=== PATIENT | female | born 2000 | race Two or more races ===

== ENCOUNTER 2024-12-31 12:16 | Emergency (ER) | payer MEDICAID ==
[~2024-12-31] VITALS: Ht 147.3 cm; Wt 51.5 kg
[2024-12-31 12:22] VITALS: BP 109/79; PULSE 84; RESP 15; O2SAT 97
[2024-12-31] MEDS: LIDOcaine 1% 30ml preserv. free vial SQ STA (13:47)
--- NOTE | 2024-12-31 14:30 | Physician Documentation ---
History of Present Illness ~ Chief Complaint: Laceration Stated Complaint: LIP LAC/BROKEN TOOTH Time Seen by MD: 12:59 [facility] THIS 24-YEAR-OLD FEMALE WAS RIDING A HOVER BOARD TODAY AND FELL ONTO HER FACE CRACKING HER TOOTH. TOOTH A THAT WAS FRACTURED SHE KEPT AND A DRY PAPER TOWEL. SHE INCURRED A LACERATION ON HER LOWER LIP. DENIES ANY LOSS OF CONSCIOUSNESS NAUSEA VOMITING OR LIGHT SENSITIVITY Day of Onset: Dec 31, 2024 Tetanus Within 5 Years: Yes Medication Reconciliation Allergies: Coded Allergies: No Known Allergies (Unverified , 09/21/09) Review of Systems All Other Systems at this time: Reviewed and Negative ROS General: Alert, no apparent distress. HEENT: PERRL, EOMI, no injection, moist mucous membranes. 3 CM LACERATION ON THROUGH THE LOWER LIP, UPPER INSISOR FRACTURED Extremities: Normal range of motion, no deformity. Neurologic: Oriented x4. Psychiatric: Normal mood and affect. Skin: Normal color, warm and dry. No edema, no ecchymosis. Physical Exam Vital Signs: Temperature: 97.9, Source: Temporal, Heart Rate: 84, Respiratory Rate: 15, BP: 109/79, Pulse Oximetry: 97, Weight: 51.550 Procedures Laceration/Wound Repair Laceration : Anesthesia: Lidocaine Prep: irrigated by physician Margins: revised, vermilion border aligned Suture Size/Type: 5-0 Number of Superficial Sutures: 5 Deep Layer Suture Size/Type: 5-0 Dressing Applied: simple Tolerated Procedure Well?: yes, no complications Progress Results/Orders Results/Orders Orders - LEVI BARNES [employer] Facial Bones/Soft Tissue (12/31/24 13:23) Laceration/I&D Tray Set Up (12/31/24 ) Completed Orders - LEVI BARNES [employer] Ct Facial Bones/Soft Tissue (12/31/24 13:23) Lidocaine 1% 30ml Vial (Xylocaine 1% Via (12/31/24 13:06) Vital Signs 12/31/24 12:22 Temp 97.9 Pulse 84 Resp 15 B/P (MAP) 109/79 Pulse Ox 97 Medical Decision Making Findings PATIENT'S CT WAS UNREMARKABLE FOR ANY FRACTURES. I WAS ABLE TO SUTURE OF HER LIP BOTH INTERNALLY AND EXTERNALLY WITHOUT DIFFICULTY. VERMILION BORDER WAS WELL APPROXIMATED Differential Dx:Considerations: Include: Abrasion, Avulsion, Contusion, Laceration, Fracture, Hematoma, Neurovascular injury, Retained foreign body, Other Departure Disposition: 01 HOME / SELF CARE / HOMELESS Impression: Primary Impression: Laceration Condition: Stable Discharge Instructions: Laceration Care, Adult, [id number] Additional Instructions: HAVE SUTURES REMOVED IN 5-7 DAYS Referrals: NO PRIMARY CARE PROVIDER (PCP) Education Educated: Patient Educated regarding: diagnosis Signature Scribe Signature: g Attestation: Scribed for Levi Barnes Seismograph Operator by Levi Godoy NP . 12/31/24 14:30 LEVI BARNES NP Dec 31, 2024 14:30
[2024-12-31 14:47] VITALS: TEMP 97.9
--- NOTE | 2024-12-31 14:57 | RADIOLOGY REPORT ---
HISTORY: fall plus bhavik fracture TECHNIQUE: Nonenhanced axial images through the facial bones with coronal and sagittal MPR. Radiation Dose Information: CT Dose: CTDI volume is 55 mGy. Dose-length product is 988 mGy*cm COMPARISON: None FINDINGS: Mandible: Unremarkable Maxilla: Unremarkable Zygomatic arches: Unremarkable Nasal bone: Unremarkable Orbits: Unremarkable Sinuses: Mucosal opacification of the ethmoid air cells. Facial swelling: None IMPRESSION: 1. No acute facial fractures. 2. Mucosal opacification of the ethmoid air cells. Radiation optimization: All CT scans at this facility use at least one of these dose optimization nunu hniques: automated exposure control mA and/or kV adjustment per patient size (includes targeted exam s where dose is matched to clinical indication) or iterative reconstruction.
== END 2024-12-31 14:49 | disposition home or self-care (01) ==
LOC: ER 12:17
DX: S01.511A Laceration without foreign body of lip, initial encounter (principal); V00.848A Other accident with standing micro-mobility pedestrian conveyance, initial encounter; Y93.89 Activity, other specified; Y92.89 Other specified places as the place of occurrence of the external cause; Y99.8 Other external cause status
CPT/HCPCS: 40650; 70486; 99284; A6449

== ENCOUNTER 2025-01-11 16:17 | Emergency (ER) | payer MEDICAID ==
[~2025-01-11] VITALS: Ht 149.9 cm; Wt 50.9 kg
[2025-01-11 16:23] VITALS: BP 136/83; PULSE 79; RESP 16; TEMP 96.9; O2SAT 98
--- NOTE | 2025-01-11 17:11 | Physician Documentation ---
History of Present Illness ~ Chief Complaint: Suture Removal Stated Complaint: SUTURE REMOVAL Time Seen by MD: 17:05 Primary Medical Doctor: CHRIS CLINTON Source: patient Mode of Arrival: POV Exam Limitations: no limitations HPI 24-year-old requiring suture removal from her lip after falling on have her [address]. No acute concerns Tetanus Within 5 Years: Yes Medication Reconciliation Allergies: Coded Allergies: No Known Allergies (Unverified , 09/21/09) Past Medical History Past Medical History: No Pertinent History Review of Systems All Other Systems at this time: Reviewed and Negative ENT: Reports: see HPI Physical Exam Vital Signs: Temperature: 96.9, Source: Temporal, Heart Rate: 79, Respiratory Rate: 16, BP: 136/83, Pulse Oximetry: 98, Weight: 50.850 Physical Exam General: Alert, no apparent distress. HEENT: PERRL, EOMI, no injection, moist mucous membranes. Lips: 4 sutures removed without complication no signs of infection Respiratory: Lungs clear, no respiratory distress. Chest: No accessory muscle use. Neurologic: Oriented x4. Psychiatric: Normal mood and affect. Skin: Normal color, warm and dry. No edema, no ecchymosis. Progress Results/Orders Results/Orders Vital Signs 01/11/25 16:23 Temp 96.9 Pulse 79 Resp 16 B/P (MAP) 136/83 Pulse Ox 98 Medical Decision Making Findings No signs of infection, sutures removed from lower lip Departure Time of Disposition: 17:10 Disposition: 01 HOME / SELF CARE / HOMELESS Impression: Primary Impression: Visit for suture removal Condition: Stable Discharge Instructions: Suture Removal, Care After Additional Instructions: Monitor for signs of infection follow up as needed Referrals: NO PRIMARY CARE PROVIDER (PCP) Education Educated: Patient Educated regarding: diagnosis, treatment, need for follow up Signature Scribe Signature: No scribe Attestation: The note accurately reflects work and decisions made by me.Mayra WHITE 01/11/25 17:11 MAYRA LYNCH NP Jan 11, 2025 17:11
== END 2025-01-11 17:33 | disposition home or self-care (01) ==
LOC: ER 16:18
DX: S01.511D Laceration without foreign body of lip, subsequent encounter (principal); X58.XXXD Exposure to other specified factors, subsequent encounter
CPT/HCPCS: 99281